=== PATIENT | male | born 1950 | race Caucasian/White ===

== ENCOUNTER → 2021-03-27 | Outpatient (CLI) | payer BC | LOC: CPPFTMAIN 10:18 | PROVIDERS: ATTEND Family Medicine | DX: R05.2 Subacute cough (principal) | CPT/HCPCS: 94060; 94726; 94729 ==

== ENCOUNTER → 2021-04-24 | Outpatient (CLI) | payer BC ==
--- NOTE | 2021-04-24 11:17 | P.STRESS ---
- Stress Test Note Stress Test Results/Findings: Exam Performed: stress test Exam Date: 04/24/21 Reason for Exam: CHEST PAIN Height: 5 ft 6 in Weight: 86.4 kg Protocol: JOHN Stage: 2 Duration of Exercise: 5:40 Resting Heart Rate: 70 Resting Blood Pressure: 137/94 Maximum Achieved Heart Rate: 139 Maximum Achieved Blood Pressure: 182/99 85% PMHR: 128 100% PMHR: 151 METS: 7.1 Technologist Comment: Stress Test Results/Findings: This is a 70-year-old gentleman being evaluated for chest pains. No history of hypertension, diabetes, hypercholesterolemia or smoking history. Stress data: Baseline EKG showed sinus rhythm with occasional PVCs. Blood pressure at rest is 137/94 with a pulse rate of 70. Patient walked on the John protocol for 5 minutes and 40 seconds achieving a maximal heart rate of 139 with a blood pressure 180/99. Patient complained of chest pain which appeared to be atypical. EKGs taken during and after exercise did not reveal any significant changes from baseline. Occasional PVCs were present. Final impression: #1. Negative stress test #2. The patient complained of chest pain which appeared to be atypical. #3. Occasional PVCs noted. #4. The patient's exercise capacity is below average
--- NOTE | 2021-04-26 08:38 | EST ---
Stress Test Results/Findings: Exam Performed: stress test Exam Date: 04/24/21 Reason for Exam: CHEST PAIN Height: 5 ft 6 in Weight: 86.4 kg Protocol: JOHN Stage: 2 Duration of Exercise: 5:40 Resting Heart Rate: 70 Resting Blood Pressure: 137/94 Maximum Achieved Heart Rate: 139 Maximum Achieved Blood Pressure: 182/99 85% PMHR: 128 100% PMHR: 151 METS: 7.1 Technologist Comment: Stress Test Results/Findings: This is a 70-year-old gentleman being evaluated for chest pains. No history of hypertension, diabetes, hypercholesterolemia or smoking history. Stress data: Baseline EKG showed sinus rhythm with occasional PVCs. Blood pressure at rest is 137/94 with a pulse rate of 70. Patient walked on the John protocol for 5 minutes and 40 seconds achieving a maximal heart rate of 139 with a blood pressure 180/99. Patient complained of chest pain which appeared to be atypical. EKGs taken during and after exercise did not reveal any significant changes from baseline. Occasional PVCs were present. Final Impression: #1. Negative stress test #2. The patient complained of chest pain which appeared to be atypical. #3. Occasional PVCs noted. #4. The patient's exercise capacity is below average MTDD
== END | disposition home or self-care (01) ==
LOC: RADNMMAIN 08:37
PROVIDERS: ATTEND Family Medicine
DX: I49.3 Ventricular premature depolarization (principal); R07.89 Other chest pain; R94.39 Abnormal result of other cardiovascular function study
CPT/HCPCS: 93017

== ENCOUNTER → 2021-08-16 | Outpatient (CLI) | payer BC ==
[2021-08-17 02:23] LABS: Alternaria alternata IgE <0.10 kU/L; Aspergillus fumagatus IgE <0.10 kU/L; Birch IgE 5.05 kU/L; Cat Epith & Dander IgE <0.10 kU/L; Cladosporian herbarum IgE <0.10 kU/L; Cockroach IgE <0.10 kU/L; Dermato. farinae IgE <0.10 kU/L; Dog Dander IgE <0.10 kU/L; Elm IgE <0.10 kU/L; Maple (Box Elder) IgE <0.10 kU/L; Oak IgE 0.13 kU/L; Ragweed,Common IgE <0.10 kU/L; Red Top (Bentgrass) IgE 1.69 kU/L
== END | disposition home or self-care (01) ==
LOC: LABWHC1 16:02
PROVIDERS: ATTEND Internal Medicine Critical Care Medicine
DX: R05.3 Chronic cough (principal)
CPT/HCPCS: 36415; 82785; 86003

== ENCOUNTER → 2023-05-02 | Outpatient (CLI) | payer BC ==
--- NOTE | 2023-05-02 10:44 | CA ---
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 ICD-10 Codes: Patient History: Fatigue, Chest pain and shortness of breath Medications: Meds past 24 hrs: Pretest Chest Pain: STRESS TEST Aba Protocol Exercise Duration (min:sec): 05:[address] Depressions (mm): Angina Score: Larson Score: Resting HR (bpm): 81 Peak HR (bpm): 137 Resting BP (mmHg): 146 / 83 Peak BP (mmHg): 146 / 83 MPHR: 149 Target HR: 127 % MPHR: 92 METS: 7.1 Total Dose: Peak Dose: Atropine: Double Product: BP Response: Stress Termination: Dyspnea, Reached target heart rate Stress Symptoms: Dyspnea Stress Summary: ECG ANALYSIS Resting ECG: Stress ECG: CONCLUSIONS Low average exercise capacity on a Aba protocol for 5 minutes, 7.1 METs achieved No definite ECG evidence for ischemia Occasional PVCs Normal heart rate and blood pressure response Dr. Sam Sheffield MD (Electronically Signed) Final Date: 02 May 2023 10:43
== END | disposition home or self-care (01) ==
LOC: RADNMMAIN 08:13
PROVIDERS: ATTEND Family Medicine
DX: I49.3 Ventricular premature depolarization (principal); I20.89 Other forms of angina pectoris; R53.83 Other fatigue
CPT/HCPCS: 93017

== ENCOUNTER 2024-09-29 11:12 | Day surgery (SDC) | payer BC ==
[2024-09-28 10:05] VITALS: BMI 29.8
[~2024-09-29 11:12] MED LIST: LACTATED RINGERS 1,000 ML IV SCH
[2024-09-29] MEDS: IV FLUID CONTINUATION 1,000 ML IV ONE (11:39)
[2024-09-29 11:46] VITALS: RESP 16; TEMP 97
[2024-09-29] MEDS ORDERED: PROPOFOL 10 MG/ML 20 ML VIAL IV ONE (12:29)
[2024-09-29 13:16] VITALS: BP 124/81; PULSE 68
--- NOTE | 2024-09-29 17:38 | PCN ---
PROCEDURE NOTE REQUESTING PHYSICIAN: Dr. Matthew Khalil. BRIEF HISTORY: The patient is a 73-year-old pleasant white male scheduled for elective colonoscopy as a part of screening for colon cancer and family history of colon cancer. His mother and grandpa both were diagnosed with colon cancer in their 60s. PROCEDURE PERFORMED: Colonoscopy with snare polypectomy. PREOPERATIVE DIAGNOSES: Screening for colon cancer and family history of colon cancer. IV SEDATION: Per Anesthesia. DESCRIPTION OF PROCEDURE: After informed consent was obtained from the patient, he was brought into the endoscopy unit. IV conscious sedation was administered by Anesthesia under continuous monitoring. Initial digital rectal examination was normal. The Olympus CF-190 video colonoscope was inserted into the rectum, gradually advanced to the cecum. Careful examination was performed as the scope was gradually being withdrawn. The ileocecal valve and appendiceal orifice were visualized and appeared normal. The prep was excellent. Mucosa of the cecum appeared normal. In the ascending colon, there were 3 polyps measuring 5 mm and 8 mm in size, removed by cold snare polypectomy. Transverse colon, descending colon, sigmoid colon and rectum appeared normal. There was moderate sigmoid diverticulosis seen. In the rectum retroflexion was performed, no lesions were noted and the patient tolerated the procedure well. IMPRESSION: 1. 5 mm, 6 mm and 8 mm ascending colon polyps, status post cold biopsy followed by snare polypectomy. 2. Moderate sigmoid diverticulosis. RECOMMENDATIONS: Findings of this examination were discussed with the patient as well as his family. He was advised to follow up with the biopsy results and if biopsy reveals adenoma, he can have a repeat colonoscopy in 5 years because of the family history of colon cancer. MMODL / IJN: [id number] /
== END 2024-09-29 13:31 | disposition home or self-care (01) ==
LOC: ORWHC2ENDO 11:12
PROVIDERS: ATTEND Internal Medicine Gastroenterology
DX: Z12.11 Encounter for screening for malignant neoplasm of colon (principal); D12.2 Benign neoplasm of ascending colon; K57.30 Diverticulosis of large intestine without perforation or abscess without bleeding; Z80.0 Family history of malignant neoplasm of digestive organs
CPT/HCPCS: 88305; 45380; 45385; J2704